=== PATIENT | male | born 1955 ===

== ENCOUNTER 2024-01-18 23:19 | Inpatient (IN) | payer MEDICARE ==
[~2024-01-18] VITALS: Ht 177.8 cm; Wt 124.1 kg
[2024-01-19] VITALS (8 sets, daily range): BP systolic 96–115; BP diastolic 58–80
[2024-01-19] MEDS ORDERED: Acetaminophen 325 MG TABLET PO PRN (02:45)
[2024-01-19] MEDS ORDERED: HYDROcodone 10-APAP 325 TAB PO PRN (02:50)
[2024-01-19] MEDS ORDERED: Ondansetron HCl 2 MG / ML 2ML Vial IV PRN (02:50)
[2024-01-19 03:10] LABS: BASOPHILS ABSOLUTE AUTO 0.03 K/mm3 (0.00-0.23); BASOPHILS PERCENT AUTO 0 % (0-2); EOSINOPHILS ABSOLUTE AUTO 0.02 K/mm3 (0.00-0.68); EOSINOPHILS PERCENT AUTO 0 % (0-6); Hematocrit 28.1 % (37.0-53.0); Hemoglobin 9.1 g/dL (13.5-17.5); IMMATURE GRAN PERCENT AUTO 1 % (0-1); LYMPHOCYTES ABSOLUTE AUTO 1.67 K/mm3 (0.84-5.20); LYMPHOCYTES PERCENT AUTO 10 % (21-46); MONOCYTES ABSOLUTE AUTO 1.86 K/mm3 (0.16-1.47); MONOCYTES PERCENT AUTO 11 % (4-13); Mean Corpuscular HGB 29.9 pg (26.0-34.0); Mean Corpuscular HGB Conc 32.4 g/dL (31.5-36.5); Mean Corpuscular Volume 92 fL (80-100); Mean Platelet Volume 10.8 fL (9.1-12.4); NEUTROPHILS ABSOLUTE AUTO 13.15 K/mm3 (1.96-9.15); NEUTROPHILS PERCENT AUTO 78 % (41-73); Platelet Count 212 K/mm3 (150-400); RDW Standard Deviation 43.8 fL (35.1-46.3); Red Blood Cell Count 3.04 M/mm3 (4.30-5.90); White Blood Cell Count 16.83 K/mm3 (4.00-11.30)
[2024-01-19 03:32] LABS: Albumin, Blood 2.5 g/dL (3.4-5.0); Anion Gap 11 mmol/L (3-11); Blood Urea Nitrogen 77 mg/dL (8-24); Bun/Creatinine Ratio 20.4 (12.0-20.0); CO2, Blood 22 mmol/L (21-32); Calcium, Blood 7.9 mg/dL (8.5-10.1); Chloride, Blood 109 mmol/L (98-108); Creatinine, Blood 3.78 mg/dL (0.60-1.20); Glomerular Filtration Rate 16 (60-); Glucose, Blood 117 mg/dL (70-99); Magnesium, Blood 1.7 mg/dL (1.6-2.4); Phosphorus, Blood 3.9 mg/dL (2.5-4.9); Sodium, Blood 138 mmol/L (136-145)
[2024-01-19] MEDS ORDERED: FURO20 PO (03:37)
[2024-01-19] MEDS ORDERED: LISI20 PO (03:38)
[2024-01-19] MEDS ORDERED: MELA3 PO (03:39)
[2024-01-19] MEDS ORDERED: MELO7.5 PO (03:39)
[2024-01-19] MEDS ORDERED: HYDRA25 PO (03:40)
[2024-01-19] MEDS ORDERED: K-Dur10 MEQ PO (03:40)
[2024-01-19] MEDS ORDERED: AMLO10 PO (03:40)
[2024-01-19] MEDS ORDERED: PERCOCET 10-321 EA10 PO (03:41)
[2024-01-19] MEDS ORDERED: HYDCHL25 PO (03:41)
--- NOTE | 2024-01-19 03:46 | NUR ---
TRANSFER NOTE PT ARRIVED VIA REACH FROM [facility]. PT A&O X3-4. UNSURE OF SPECIFIC DATE, STATING IT WAS December. KNEW YEAR. BP STABLE. ON RA WITH SPO2 >92%. DENIES CHEST PAIN/PRESSURE AND SOB. PT ONLY C/O LEFT KNEE PAIN. PT FALLING ASLEEP WITH CONVERSATION. REPORTS BEING TIRED FROM TRANSPORT. LLE FROM ANKLE TO UPPER THIGH RED AND EDEMATOUS. RLE WITH EDEMA AND RED CALF, BUT LESS THAN LLE. LLE PAINFUL TO TOUCH. EDEMA TO BILATERAL FEET. REDNESS TO COCCYX. BARRIER CREAM IN PLACE. BED ALARM ON FOR SAFETY. BED IN LOWEST POSITION AND CALL LIGHT WITHIN REACH.
--- NOTE | 2024-01-19 06:16 | NUR ---
SHIFT SUMMARY SEE PREVIOUS NOTE. NO ACUTE CHANGES SINCE PREVIOUS NOTE. VSS. PT APPEARS TO BE RESTING AT THIS TIME WITH CHEST RISE/FALL. SEE PREVIOUS NOTE AND ASSESSMENT. BED IN LOWEST POSITION AND CALL LIGHT WITHIN REACH. THIS RN WILL REPORT TO ONCOMING DAYSHIFT RN.
[2024-01-19 06:49] LABS: Alanine Aminotransfer (ALT/SGP 46 U/L (12-78); Albumin, Blood 2.3 g/dL (3.4-5.0); Albumin/Globulin Ratio 0.5 (0.8-1.8); Alk Phos 81 U/L (50-136); Aspartate Aminotrans (AST/SGOT 89 U/L (12-37); Bilirubin, Direct 0.4 mg/dL (0.0-0.3); Bilirubin, Indirect 0.6 mg/dL (0.1-0.7); Ferritin, Serum 600 ng/mL (26-388); Globulin, Blood 4.3 g/dL (2.2-4.0); Iron Serum 13 ug/dL (65-175); Percent Saturation 8.3 % (20.0-50.0); Total Iron Binding Capacity 157 ug/dL (250-450); Total Protein, Blood 6.6 g/dL (6.4-8.2)
[2024-01-19 06:55] LABS: C-Reactive Protein, High Sens. >190.000 mg/dL (0.000-3.000)
[2024-01-19] MEDS ORDERED: CefTRIAXone Sodium 1,000 MG in NS 100 ML IV SCH (07:05)
[2024-01-19] MEDS ORDERED: Heparin Sodium,Porcine 5,000 UNIT/0.5 ML SDV SC SCH (09:00)
[2024-01-19] MEDS ORDERED: Lactobacil 2-S.Thermo-Bifido 1 1 Cap PO SCH (09:00)
[2024-01-19] MEDS ORDERED: Docusate Sodium 100 MG Cap PO SCH (09:00)
[2024-01-19] MEDS ORDERED: NS 1,000 ML IV SCH (10:36)
[2024-01-19 15:59] LABS: Vancomycin, Random 15.2 ug/mL
[2024-01-19] MEDS ORDERED: Vancomycin HCL 1,250 MG in NS 250 ML IV ONE (18:00)
--- NOTE | 2024-01-19 19:01 | NUR ---
SHIFT SUMMARY PT TRANSFERRED FROM PCU THIS SHIFT. PT AXO X4. VSS. PT RESISTANT TO REPOSITIONING OR GETTING OOB TO CHAIR. RECLINER IN THE ROOM BUT PT STATES THAT HE DOES NOT WANT TO. HIS PAIN BEING A BARRIER BUT HE REFUSES PAIN MEDICATION. IV PATENT AND INFUSING PER EMAR. DR CORTÉS GIVEN HIS DAUGHTER KINA'S PHONE NUMBER FOR AN UPDATE PER HER REQUEST. PT STATES IT IS OKAY TO SPEAK TO HER ABOUT HIS MEDICAL CARE. BED IN LOW POSITION, CALL LIGHT WITHIN REACH
[2024-01-20 04:02] VITALS: BP 119/74
[2024-01-20 05:14] LABS: BASOPHILS ABSOLUTE AUTO 0.05 K/mm3 (0.00-0.23); BASOPHILS PERCENT AUTO 0 % (0-2); EOSINOPHILS ABSOLUTE AUTO 0.11 K/mm3 (0.00-0.68); EOSINOPHILS PERCENT AUTO 1 % (0-6); Hematocrit 27.5 % (37.0-53.0); Hemoglobin 9.1 g/dL (13.5-17.5); IMMATURE GRAN ABSOLUTE AUTO 0.13 K/mm3 (0.00-0.10); IMMATURE GRAN PERCENT AUTO 1 % (0-1); LYMPHOCYTES ABSOLUTE AUTO 1.68 K/mm3 (0.84-5.20); LYMPHOCYTES PERCENT AUTO 12 % (21-46); MONOCYTES PERCENT AUTO 10 % (4-13); Mean Corpuscular HGB 30.2 pg (26.0-34.0); Mean Corpuscular HGB Conc 33.1 g/dL (31.5-36.5); Mean Corpuscular Volume 91 fL (80-100); Mean Platelet Volume 11.2 fL (9.1-12.4); NEUTROPHILS ABSOLUTE AUTO 10.61 K/mm3 (1.96-9.15); NEUTROPHILS PERCENT AUTO 76 % (41-73); Platelet Count 241 K/mm3 (150-400); RDW Standard Deviation 42.9 fL (35.1-46.3); Red Blood Cell Count 3.01 M/mm3 (4.30-5.90); White Blood Cell Count 13.98 K/mm3 (4.00-11.30)
[2024-01-20 05:49] LABS: Albumin/Globulin Ratio 0.5 (0.8-1.8); Bilirubin, Total 0.8 mg/dL (0.1-1.0); Bun/Creatinine Ratio 29.2 (12.0-20.0); Calcium, Blood 7.5 mg/dL (8.5-10.1); Creatinine, Blood 2.09 mg/dL (0.60-1.20); Globulin, Blood 4.3 g/dL (2.2-4.0); Potassium, Blood 3.8 mmol/L (3.5-5.5); Total Protein, Blood 6.3 g/dL (6.4-8.2)
--- NOTE | 2024-01-20 06:27 | NUR ---
END OF SHIFT SUMMARY PT A&OX4. LLE CELLULITIS, PT REPORTS SOME IMPROVEMENT. MEDICATED FOR PAIN X1. 1 EPISODE OF INCONTINENT BM. NO ACUTE EVENTS OVERNIGHT.
[2024-01-20 07:31] VITALS: BP 123/71
[2024-01-20 15:41] VITALS: BP 128/78
--- NOTE | 2024-01-20 17:44 | NUR ---
SHIFT SUMMARY: PT IS A&OX4/BEDBOUND; MAKES NEEDS KNOWN. HE CONTINUES TO BE PAINFUL ALL OVER; MEDICATING NEEDED. PATIENT EXPRESSES IMPROVEMENT IN PAIN AND IS ABLE TO MOVE HIS LLE MORE/BETTER TODAY. HE CONTINUES TO GET IV ANTIBIOTICS AND IV FLUIDS. SHE IS CONTINENT OF URINE USES THE URINAL, BUT HAS BEEN INCONTINENT OF STOOL; NOTIFIES STAFF WHEN HE HAS A BOWEL MOVEMENT. HE IS IN BED, CALL LIGHT WITHIN REACH, NO SIGNS OR SYMPTOMS OF DISTRESS, PLAN OF CARE ONGOING.
[2024-01-20 17:50] LABS: Vancomycin, Random 16.5 ug/mL
[2024-01-20] MEDS ORDERED: Vancomycin HCL 1,000 MG in NS 250 ML IV ONE (18:00)
[2024-01-20 19:22] VITALS: BP 129/80
[2024-01-21 03:30] VITALS: BP 133/65
[2024-01-21 06:19] LABS: BASOPHILS ABSOLUTE AUTO 0.07 K/mm3 (0.00-0.23); BASOPHILS PERCENT AUTO 1 % (0-2); EOSINOPHILS ABSOLUTE AUTO 0.21 K/mm3 (0.00-0.68); EOSINOPHILS PERCENT AUTO 2 % (0-6); Hematocrit 28.5 % (37.0-53.0); Hemoglobin 9.3 g/dL (13.5-17.5); IMMATURE GRAN ABSOLUTE AUTO 0.18 K/mm3 (0.00-0.10); IMMATURE GRAN PERCENT AUTO 2 % (0-1); LYMPHOCYTES ABSOLUTE AUTO 1.88 K/mm3 (0.84-5.20); LYMPHOCYTES PERCENT AUTO 16 % (21-46); MONOCYTES ABSOLUTE AUTO 1.16 K/mm3 (0.16-1.47); MONOCYTES PERCENT AUTO 10 % (4-13); Mean Corpuscular HGB 30.1 pg (26.0-34.0); Mean Corpuscular HGB Conc 32.6 g/dL (31.5-36.5); Mean Corpuscular Volume 92 fL (80-100); Mean Platelet Volume 10.8 fL (9.1-12.4); NEUTROPHILS ABSOLUTE AUTO 8.24 K/mm3 (1.96-9.15); NEUTROPHILS PERCENT AUTO 70 % (41-73); Platelet Count 301 K/mm3 (150-400); RDW Coefficient Variation 13.2 % (11.7-14.2); RDW Standard Deviation 44.1 fL (35.1-46.3); Red Blood Cell Count 3.09 M/mm3 (4.30-5.90); White Blood Cell Count 11.74 K/mm3 (4.00-11.30)
[2024-01-21 06:43] LABS: Albumin, Blood 1.9 g/dL (3.4-5.0); Albumin/Globulin Ratio 0.4 (0.8-1.8); Bilirubin, Total 0.6 mg/dL (0.1-1.0); Bun/Creatinine Ratio 29.1 (12.0-20.0); Calcium, Blood 7.7 mg/dL (8.5-10.1); Creatinine, Blood 1.41 mg/dL (0.60-1.20); Globulin, Blood 4.5 g/dL (2.2-4.0); Potassium, Blood 3.8 mmol/L (3.5-5.5); Total Protein, Blood 6.4 g/dL (6.4-8.2)
--- NOTE | 2024-01-21 06:44 | NUR ---
END OF SHIFT SUMMARY PT A&OX4. LLE CELLULITIS IMPROVING. MEDICATED FOR PAIN PER EMAR WITH GOOD EFFECT. REMAINS AFIB ON TELE, DENIES CP/PALPITATIONS. IVF STOPPED THIS AM. LOOSE INCONTINENT BM X2. NO ACUTE EVENTS OVERNIGHT.
[2024-01-21 07:18] VITALS: BP 148/87
--- NOTE | 2024-01-21 09:00 | NUR ---
pt laying in bed, awake, watching tv, a/ox4, cooperative with care, follows commands well, states his legs are doing good right now. Lungs are clear t/o, resp even and unlabored, no cough noted, on r/a, hrr, tele in place running sr per monitor, see strip, piv to rfa and lfa, sites are clear and patent, 2+ edema noted to b/l le, ppp faint, cap refill <3 sec, vs stable, afebrile, btx4, abd flat soft nontender, voids via urinal, skin has pink b/l le, left worse than right, weak, silva call light in reach.
[2024-01-21 14:42] VITALS: BP 147/85
[2024-01-21 17:33] LABS: Vancomycin, Random 16.1 ug/mL
[2024-01-21] MEDS ORDERED: Vancomycin HCL 1,000 MG in NS 250 ML IV SCH (18:00)
--- NOTE | 2024-01-21 18:11 | NUR ---
pt worked with PT today, did stand and take a few steps but was difficult and slow, no further changes this shift, call light in reach.
[2024-01-21 19:34] VITALS: BP 136/67
--- NOTE | 2024-01-21 22:57 | NUR ---
TRANSFER OF CARE HANDOFF RECEIVED FROM ROXANE SANTAMARIA. TELEMETRY IN PLACE. CALL BUTTON WITHIN REACH.
--- NOTE | 2024-01-22 04:37 | NUR ---
SHIFT SUMMARY ADMITTED FOR LLE CELLULITIS. FULL CODE. HE IS HOPEFUL FOR DC HOME TODAY IF ALL THE HOME ARRANGEMENTS CAN BE READY. HE LIVES WITH HIS IN [place]. TELEMETRY: AFIB @ 83 BPM. CARDIAC DIET. DIARRHEA REPORTED THIS SHIFT X1. 2 ASSIST TO BSC W/FWW. ON RA. PAIN MEDICATION GIVEN THIS SHIFT. ANTIB RX ARE SCHEDULED. PHYSICAL THERAPY IS ASSISTING WITH THIS PATIENT.
[2024-01-22 05:44] VITALS: BP 130/89
[2024-01-22 07:20] VITALS: BP 146/74
--- NOTE | 2024-01-22 09:00 | NUR ---
pt laying in bed a/ox4, pleasant and cooperative with care, follows commands well, reports pain in his legs and knees, lungs are clear dim in bases, resp even and unlabored, on r/a, no cough noted, hrr, tele in place running sr per monitor, see strip edema noted to b/l le, greater on left than right, piv to r and l fa's, btx4, abd flat soft nontender,voids via urinal skin has pink b/l le, left worse than right, maew, very slowly, uses a walker to ambulate which is difficult for him, silva, call light in reach.
[2024-01-22] MEDS ORDERED: ACET325 PO (11:39)
[2024-01-22] MEDS ORDERED: VISBIOME 112.51 EACH PO (11:41)
[2024-01-22] MEDS ORDERED: CEPH500 PO (11:43)
--- NOTE | 2024-01-22 13:12 | NUR ---
Pt has been discharged to home, ivx2 removed intact, went over discharge instructions with him, he verbalized understanding, spouce here to pick him up.
--- NOTE | 2024-01-22 14:30 | NUR ---
pt left via wheelchair with and plain goods hemmer in attendence, with all belongings, and hard script for labs as out pt.
== END 2024-01-22 14:44 | disposition home health service (06) | DRG 603 ==
LOC: PCU 23:19 → MEDS 01-19 02:23 → PCU 01-19 10:02 → MEDS 01-19 11:16
PROVIDERS: Family Medicine; ADMIT Student in an Organized Health Care Education/Training Program
DX: L03.115 Cellulitis of right lower limb (principal); N39.0 Urinary tract infection, site not specified; L03.116 Cellulitis of left lower limb; N28.9 Disorder of kidney and ureter, unspecified; I10 Essential (primary) hypertension; D50.9 Iron deficiency anemia, unspecified; Z98.890 Other specified postprocedural states; Z87.891 Personal history of nicotine dependence; B95.61 Methicillin susceptible Staphylococcus aureus infection as the cause of diseases classified elsewhere
CPT/HCPCS: 36415; 76770; 80053; 80069; 80076; 80202; 82570; 82728; 83540; 83550; 83605; 83735; 83880; 84300; 85025; 85651; 86141; 86850; 86900; 86901; 93971; 97110; 97116; 97530; A9270; J0696; J1644; J3370; J7030; J7050